=== PATIENT | male | born 1980 | race Two or more races ===

== ENCOUNTER 2016-09-07 13:04 | Emergency (ER) | payer OTHER ==
--- NOTE | ~2016-09-07 | CT4 ---
[facility] A Service of [facility] & [facility] RADIOLOGY TEXT RESULTS PATIENT: NATE MILLAN LOCATION: [facility] : 82 UNIT #: [id number] AGE: [address]: Eugenio Cody MD SEX: M ORDER DR: [id number] [facility] [address] [place], [place] [address] [id number] E MR#: [id number] #: [id number] NAME: NATE MILLAN : 1980 SEX: M STUDY DATE/TIME: 09/07/2016 13:33 UNIT: [facility] ROOM: STUDY DESCRIPTION: CT Abd and Pelv Wo Cont Attending Physician: Eugenio Cody M.D. Ordering Physician: Eugenio Cody M.D. Primary Care Physician: No Primary Care Physician MEDICAL IMAGING REPORT This report is preliminary unless electronic signature is present EXAM CT abdomen and pelvis, 09/07/2016. HISTORY Mid to lower back pain since 09/06/2016. Complains of abdominal pain since yesterday. Prior history of hepatitis C and cirrhosis. Prior liver biopsy. TECHNIQUE CT abdomen and pelvis performed without administration of oral or intravenous contrast. This CT exam was performed with one or more of the following radiation dose reduction techniques: automatic exposure control, adjustment of mA and/or kV according to patient size, and iterative reconstruction. COMPARISON STUDIES No prior studies for comparison at this institution. FINDINGS The lung bases are clear and the inferior heart and pericardium are unremarkable. Diffuse fatty infiltration of the liver with some focal sparing adjacent to the gallbladder. Gallbladder, spleen, pancreas, adrenal glands, kidneys unremarkable. Bilateral ureters unremarkable. CT PELVIS: No inguinal adenopathy. Urinary bladder remarkable. There are calcified phleboliths in the deep pelvis. No pelvic or retroperitoneal adenopathy. Distal esophagus, stomach, small bowel, appendix unremarkable. Colon normal to level of sigmoid colon where there is a relatively long segment showing concentric mural thickening over a length of approximately 9 cm. Adjacent inflammatory fat stranding and haziness. There is diverticular disease in this region and the appearance of the sigmoid colon is felt to reflect acute diverticulitis. No free [facility] A Service of [facility] & [facility] RADIOLOGY TEXT RESULTS PATIENT: NATE MILLAN LOCATION: [facility] : [birth year] UNIT #: [id number] AGE: [address]: Eugenio Cody MD SEX: M ORDER DR: air, fluid collection, or abscess. Follow up after treatment for diverticulitis recommended to confirm resolution of wall thickening. No obstruction. Unopacified vascular structures unremarkable. There is a round metallic density along the posterior left paracentral body wall which is presumed to be extrinsic to the patient, possibly representing a coin. Correlate clinically. The bony structures show no acute-appearing bony abnormality. Rudimentary ribs bilateral L1. Old fracture with nonunion or accessory ossification center with nonunion of the transverse process L3. IMPRESSION 1. Acute sigmoid diverticulitis. Concentric mural thickening of the mid sigmoid colon over a length of approximately 9 cm. Diverticular disease in this region. Surrounding inflammatory fat stranding and haziness. No free air. No abscess or fluid collection. No obstruction. Follow up imaging after treatment for diverticulitis is strongly recommended to confirm resolution of wall thickening. 2. Diffuse fatty infiltration of the liver with focal sparing along the gallbladder fossa. Mild hepatomegaly. 3. Not mentioned in body of report above, there are foci of air density in the right mid buttock. No associated fluid. This may represent site of medicine administration. Correlate clinically. I see no soft tissue defect to suggest penetrating trauma. 4. See remainder of findings in body of report above. Dictated by... Armando Gates M.D. THIS IS AN ELECTRONICALLY VERIFIED REPORT Armando Gates M.D. at 09/08/2016 11:06 PM Viky TD: 09/07/2016 16:39 JOB #: [id number] MEDICAL IMAGING REPORT Page 1 of 1 COPY
[2016-09-07 13:08] LABS: URINE SOURCE CLEAN CATCH
[2016-09-07 13:16] LABS: BASOPHIL% 0.1 % (0-2.5); EOSINOPHIL# 0.1 X10e3 (0-0.7); EOSINOPHIL% 0.7 % (0.0-7.0); HEMATOCRIT 44.5 % (38.0-50.0); HEMOGLOBIN 15.3 gm/dL (13.0-16.0); LYMPHOCYTE# 1.2 X10e3 (1.0-3.5); LYMPHOCYTE% 8.7 % (17.0-45.0); MEAN CELL VOLUME 87.7 FL (83-96); MEAN CORPUSCULAR HEMOGLOBIN 30.1 PG (28-34); MEAN CORPUSCULAR HGB CONC 34.4 g/dL (30-36); MEAN PLATELET VOLUME 7.7 FL (6.5-11.5); MONOCYTE% 6.9 % (3.0-12.0); NEUTROPHIL# 11.5 X10e3 (1.5-7.1); NEUTROPHIL% 83.6 % (40-75); PLATELET COUNT 235 X10e3 (140-420); RED BLOOD COUNT 5.08 X10e (3.90-5.60); RED CELL DISTRIBUTION WIDTH 13.7 % (11.0-15.5); WHITE BLOOD COUNT 13.8 X10e3 (4.0-10.5)
[2016-09-07 13:21] LABS: DIFF IND NO
[2016-09-07 13:25] LABS: URINE APPEARANCE CLEAR; URINE BILIRUBIN NEG (NEG); URINE BLOOD NEG (NEG); URINE COLOR YELLOW; URINE GLUCOSE NEG (NEG); URINE KETONE NEG (NEG); URINE LEUKOCYTE ESTERASE NEG (NEG); URINE NITRATE NEG (NEG); URINE PROTEIN NEG (NEG); URINE SPECIFIC GRAVITY 1.026 (1.003-1.035); URINE UROBILINOGEN 0.2 MG/DL (NEG)
[2016-09-07 13:34] LABS: CULTURE INDICATED? NO
[2016-09-07 13:40] LABS: ALBUMIN SERUM 4.7 g/dL (3.5-5.0); BILIRUBIN, DIRECT 0.1 mg/dL (0.0-0.2); BILIRUBIN,INDIRECT 0.6 mg/dL (0.0-0.9); BILIRUBIN,TOTAL 0.7 mg/dL (0.2-2.0); BUN/CREATININE RATIO 17.14; CALCIUM SERUM 9.2 mg/dL (8.4-10.2); CREATININE SERUM 0.7 mg/dL (0.6-1.4); GLOM FILT RATE Estimated 122.3 mL/min (>60); POTASSIUM 3.7 mmol/L (3.5-5.1); PROTEIN TOTAL SERUM 8.4 g/dL (6.0-8.3)
== END 2016-09-07 15:05 | disposition home or self-care (01) ==
LOC: CED 13:04
PROVIDERS: Emergency Medicine
DX: K57.32 Diverticulitis of large intestine without perforation or abscess without bleeding (principal)
CPT/HCPCS: 36415; 74176; 80048; 80076; 81003; 82150; 83690; 85025; 96372; 99284; J0500

== ENCOUNTER → 2016-09-30 | Outpatient (CLI) | payer OTHER ==
[2016-09-30 11:03] LABS: BASOPHIL# 0.1 X10e3 (0-0.3); BASOPHIL% 0.9 % (0-2.5); EOSINOPHIL# 0.3 X10e3 (0-0.7); EOSINOPHIL% 5.1 % (0.0-7.0); HEMATOCRIT 43.5 % (38.0-50.0); HEMOGLOBIN 15.1 gm/dL (13.0-16.0); LYMPHOCYTE# 2.2 X10e3 (1.0-3.5); LYMPHOCYTE% 33.1 % (17.0-45.0); MEAN CELL VOLUME 87.8 FL (83-96); MEAN CORPUSCULAR HEMOGLOBIN 30.5 PG (28-34); MEAN CORPUSCULAR HGB CONC 34.7 g/dL (30-36); MONOCYTE# 0.5 X10e3 (0-1.0); NEUTROPHIL# 3.5 X10e3 (1.5-7.1); NEUTROPHIL% 52.9 % (40-75); PLATELET COUNT 248 X10e3 (140-420); RED BLOOD COUNT 4.95 X10e (3.90-5.60); RED CELL DISTRIBUTION WIDTH 13.8 % (11.0-15.5); WHITE BLOOD COUNT 6.5 X10e3 (4.0-10.5)
[2016-09-30 11:06] LABS: DIFF IND NO
[2016-09-30 11:33] LABS: ALBUMIN SERUM 4.3 g/dL (3.5-5.0); BILIRUBIN,TOTAL 0.9 mg/dL (0.2-2.0); CREATININE SERUM 0.7 mg/dL (0.6-1.4); GLOM FILT RATE Estimated 122.3 mL/min (>60); MAGNESIUM 2.2 mg/dL (1.6-3.0); POTASSIUM 3.8 mmol/L (3.5-5.1); PROTEIN TOTAL SERUM 7.7 g/dL (6.0-8.3)
== END | disposition home or self-care (01) ==
LOC: CBAR 09:46
PROVIDERS: Nurse Practitioner
DX: K57.92 Diverticulitis of intestine, part unspecified, without perforation or abscess without bleeding (principal); J30.9 Allergic rhinitis, unspecified; R19.7 Diarrhea, unspecified
CPT/HCPCS: 80053; 83735; 85025